=== PATIENT | male | born 1955 | race Caucasian/White ===

== ENCOUNTER 2018-06-04 15:06 | Outpatient (CLI) | payer MEDICARE ==
--- NOTE | 2018-06-04 18:35 | RAD ---
CHEST PA AND LATERAL: 06/04/18 HISTORY: 63-year-old male with history of shortness of breath. FINDINGS: Heart size is borderline enlarged. Minimal bilateral pleural thickening and some minimal increased ma rkings bilaterally, but overall stable. Healed right rib fracture. IMPRESSION: Mild stable chronic changes. Borderline cardiomegaly. No significant acute intrathoracic disease. POS: [facility]
--- NOTE | 2018-06-04 18:55 | NM ---
VENTILATION PERFUSION LUNG SCAN: 06/04/18 HISTORY: 63-year-old male with shortness of breath. COMPARISON: 02/06/13. Patient inhaled 19.8 millicuries Xenon 133 gas. Ventilation study is symmetric without significant tr apping. Perfusion lung scan: The patient was injected with 6.1 millicuries technetium 99m MAA intravenously. Perfusion is slightly patchy bilaterally but no segmental or large areas of absolute perfusion defect. Appearance is overa ll stable from the 02/06/13 study. IMPRESSION: Findings consistent with a low probability of acute PE. Stable appearance from 02/06/13. POS: [facility]
== END 2018-06-04 15:07 | disposition home or self-care (01) ==
LOC: NM 15:06
PROVIDERS: ATTEND Internal Medicine Cardiovascular Disease
DX: R06.02 Shortness of breath (principal); I51.7 Cardiomegaly
CPT/HCPCS: 71046; 78582; A9540; A9558

== ENCOUNTER 2018-10-23 20:30 | Outpatient (CLI) | payer MEDICARE | END 2018-10-23 20:31 | disposition home or self-care (01) | LOC: SLEEPLAB 20:30 | PROVIDERS: ATTEND Internal Medicine Pulmonary Disease | DX: G47.33 Obstructive sleep apnea (adult) (pediatric) (principal); I10 Essential (primary) hypertension | CPT/HCPCS: 95811 ==

== ENCOUNTER 2019-05-20 12:30 | Outpatient (CLI) | payer MEDICARE | END 2019-05-20 12:31 | disposition home or self-care (01) | LOC: ULT 12:30 | PROVIDERS: ATTEND Family Medicine | DX: I50.20 Unspecified systolic (congestive) heart failure (principal) | CPT/HCPCS: 93306 ==

== ENCOUNTER 2019-05-21 08:37 | Outpatient (CLI) | payer MEDICARE ==
[2019-05-21] MEDS ORDERED: Regadenoson 0.4 MG/5 ML SYRINGE ONE (14:33)
--- NOTE | 2019-05-22 09:19 | NM ---
Radionucleotide stress and rest myocardial perfusion scan with CT attenuation correction and SPECT im aging Left ventricular wall motion evaluation and ejection fraction HISTORY: Lexiscan protocol. There is heterogeneous uptake of radiotracer throughout the left ventricu lar myocardium on the stress and rest images. No focal perfusion defect or reversibility. QGS analysis of gated SPECT images shows dyskinesis of the distal anterior wall. Ejection fraction ca lculated at 52%. IMPRESSION: Normal perfusion scan. No evidence of ischemia. Borderline ejection fraction of 52%
== END 2019-05-21 08:38 | disposition home or self-care (01) ==
LOC: NM 08:37
PROVIDERS: ATTEND Family Medicine
DX: I50.20 Unspecified systolic (congestive) heart failure (principal)
CPT/HCPCS: 78452; 93017; A9500; J2785